=== PATIENT | female | born 1975 | race Caucasian/White ===

== ENCOUNTER → 2017-05-28 | Outpatient (CLI) | payer OTHER ==
[~2017-05-28] MED LIST: IBUP800 PO
[2017-05-28 11:54] LABS: Specimen Source CERVIX
[2017-05-29 02:38] LABS: Source Cervix
== END ==
LOC: LAB 11:42
PROVIDERS: Advanced Practice Midwife
DX: Z11.3 Encounter for screening for infections with a predominantly sexual mode of transmission (principal)
CPT/HCPCS: 87491; 87591